=== PATIENT | male | born 1970 | race Caucasian/White ===

== ENCOUNTER 2020-03-09 10:35 | Outpatient (CLI) | payer OTHER, SELFPAY ==
--- NOTE | ~2020-03-09 | XR_ITS ---
EXAMINATION: XR abdomen/kub 1V DATE: 03/09/2020 10:54 INDICATION: Right flank pain. Right ureteral stone. TECHNIQUE: A supine view of the abdomen on 2 radiographs was obtained. COMPARISON: CT abdomen and pelvis 09/30/2013, abdomen radiographs 02/27/2018 FINDINGS: There are no dilated loops of bowel. There are vascular calcifications in left pelvis. Ther e are 2 mm and 4 mm calcifications in right pelvis. IMPRESSION: 1. 2 mm and 4 mm calcifications in right pelvis, that may be phleboliths or distal ureteral stones. Reviewed, dictated and finalized at location A. S PRODUCT ANALYST IMPRESSION: 1. 2 mm and 4 mm calcifications in right pelvis, that may be phleboliths or dis marcelo ureteral stones.
== END 2020-03-09 10:36 | disposition home or self-care (01) ==
PROVIDERS: PCP Family Medicine; Visit Provider Urology
DX: N20.1 Calculus of ureter (principal)
CPT/HCPCS: 74018

== ENCOUNTER 2020-03-10 10:35 | Outpatient (CLI) | payer OTHER, SELFPAY ==
--- NOTE | ~2020-03-10 | XR_ITS ---
XR abdomen/kub 1V DATE: 03/10/2020 10:55 INDICATION: Right ureteral stone TECHNIQUE: AP projection, 2 views COMPARISON: 03/09/2020 KUB FINDINGS: Small calcifications previously noted overlying the right pelvis on 03/09/2020 are not evide nt on the current examination. Calcified left pelvic phleboliths. No bowel obstruction. The psoas shadows are intact. No visceromegaly is evident. Included skeletal st ructures are unremarkable. IMPRESSION: Previously reported right pelvic calcifications/ are not evident on the current ra diograph. Noncontrast CT abdomen pelvis would be most optimal for evaluation of urinary tract stones. Reviewed, dictated and finalized at Location A. Reviewed, dictated and finalized at location A. ER MACHINE OPERATOR IMPRESSION: Previously reported right pelvic calcifications/ are not boaz dent on the current radiograph. Noncontrast CT abdomen pelvis would be most optimal for evaluation of urinary t ract stones.
--- NOTE | ~2020-03-10 | CT_ITS ---
EXAMINATION: CT abdomen pelvis wo con DATE: 03/10/2020 11:02 INDICATION: Right ureteral stone. TECHNIQUE: Computed tomography (CT) of the abdomen and pelvis was performed without intravenous contr ast. Automated exposure control and iterative reconstruction technique were employed. The dose-length product was 254.78 mGy-cm. COMPARISON: 09/30/2013 FINDINGS: Discoid atelectasis in the left lower lobe and lingula. Heart size is normal. No pericardial or pleur al effusion. Liver, gallbladder, spleen, pancreas and bilateral adrenal glands are normal. 12 mm left renal cyst. There are 4 nonobstructing stones measuring up to 2 mm in the left kidney and 2 nonobstr ucting stones measuring up to 3 mm in the right kidney. No ureteral stones or hydronephrosis on eithe r the left or right. Bladder is normal. Prosthetic calcifications. There are few sigmoid diverticula without adjacent inflammatory change to suggest diverticulitis. Small bowel and appendix are normal. No free intraperitoneal gas or fluid. No pathologically enlarged abdominal or pelvic lymphadenopathy. Bones are unremarkable. IMPRESSION: 1. Bilateral nonobstructing nephrolithiasis. 2. Mild sigmoid diverticulosis. Reviewed, dictated and finalized at location B. [place] PHARMACY MANAGER
== END 2020-03-10 10:36 | disposition home or self-care (01) ==
PROVIDERS: PCP Family Medicine; Visit Provider Urology
DX: N20.1 Calculus of ureter (principal); K57.30 Diverticulosis of large intestine without perforation or abscess without bleeding; N20.0 Calculus of kidney
CPT/HCPCS: 74018; 74176

== ENCOUNTER → 2020-07-08 03:34 | Outpatient (CLI) | payer OTHER, SELFPAY ==
[2020-07-08 19:46] LABS: SARS-CoV-2 RNA PCR Negative
== END ==
PROVIDERS: PCP Internal Medicine; Visit Provider Internal Medicine Gastroenterology
DX: Z01.812 Encounter for preprocedural laboratory examination (principal); Z20.822 Contact with and (suspected) exposure to COVID-19
CPT/HCPCS: C9803; U0003; U0005

== ENCOUNTER 2020-07-11 01:19 | Day surgery (SDC) | payer OTHER, SELFPAY ==
[2020-07-05 13:38] VITALS: BMI 27.0
[2020-07-11 07:15] VITALS: BP 120/98; PULSE 62; RESP 18; TEMP 36.5; O2SAT 98; BMI 26.4
[2020-07-11] MEDS: LACTATED RINGERS 1,000 ML 150 ML IV CONT (07:28)
--- NOTE | 2020-07-11 07:50 | PM.HPGS ---
History of Present Illness History of Present Illness Consent: Risks, benefits, and alternatives have been discussed and questions answered. Patient agrees to proceed with procedure. Chief complaint: neoplasm screening Narrative: Lloyd Escobar is a 50 year old male here for first screening colonoscopy Review of Systems Constitutional: Constitutional: Denies headache(s) and Denies weakness Eyes: Eyes: Denies blurry vision ENT: Reports Normal hearing present, Denies headache(s) and Denies neck pain Cardiovascular: Cardiovascular: Denies chest pain and Denies dyspnea Respiratory: Respiratory: Denies dyspnea Gastrointestinal: Gastrointestinal: Reports no additional gastrointestinal complaints Genitourinary: Genitourinary: Denies dysuria Musculoskeletal: Musculoskeletal: Denies neck pain Integumentary/Breasts: Skin/Breast: Denies dry skin Neurologic: Reports Normal hearing present, Denies headache(s) and Denies weakness Psychiatric: Psychiatric: Denies anxiety Endocrine: Endocrine: Denies change in body appearance Hematologic/Lymphatic: Hematologic/Lymphatic: Denies easy bleeding Allergic/Immunologic: Allergic/Immunologic: Denies urticaria PMF Past Medical History Medical History (Updated 07/11/20 @ 07:51 by Aamir Arroyo MD) Colon cancer screening Family History Family History (Updated 10/13/14 @ 08:59 by DOCTOR UNKNOWN) Other Diabetes mellitus Social History Social History Smoking status: Never smoker Alcohol intake: current Drinks per week: 8 Living arrangements: with family Spiritual care concerns: No Meds Home Medications and Allergies Home Medications Medication Instructions Recorded Confirmed Type No Home Medications 07/05/20 07/11/20 History Allergies Allergy/AdvReac Type Severity Reaction Status Date / Time levofloxacin Allergy Severe ACHILLES Verified 07/11/20 07:14 TENDONITIS Vital Signs Vital Signs - 24 hr 07/11/20 07:15 Temperature 97.7 F Pulse Rate 62 Respiratory Rate 18 Blood Pressure 120/98 H Pulse Oximetry 98 Exam Const: General: comfortable and no acute distress HENMT: General nose exam: Normal nares present Eyes: General: appearance normal, both eyes and all related structures Neck: Neck: no JVD Resp: Auscultation: clear to auscultation bilaterally Cardio: Rate: regular rate Rhythm: regular rhythm GI: Inspection: non-distended GI Palp: Yes Soft to palpation Skin: General skin exam: normal color Neuro: General: gait normal Speech: normal speech Extrem: General: normal to inspection Psych: Mental Status: mental status grossly normal Assessment and Plan Assessment and plan (1) Colon cancer screening: Code(s): Z12.11 - Encounter for screening for malignant neoplasm of colon Status: Acute Assessment and Plan: colonoscopy
--- NOTE | 2020-07-11 07:56 | WPDANESEPPF ---
Anes - Initial Pre Proc Eval Procedure: Operation Date: 07/11/20 08:00 Proposed Procedures p Screening Colonoscopy - Aamir Arroyo MD Date/Time: 07/11/20 07:56 Surgeon: Aamir Arroyo MD Pre Op Diagnosis: neoplasm screening Patient Data Age: 50 Gender: M Height: 5 ft 9 in Weight: 81 kg Last Vital Signs Temp 97.7 F 07/11/20 07:15 Pulse 62 07/11/20 07:15 Resp 18 07/11/20 07:15 BP 120/98 H 07/11/20 07:15 Pulse Ox 98 07/11/20 07:15 Allergies Allergy/AdvReac Type Severity Reaction Status Date / Time levofloxacin Allergy Severe ACHILLES Verified 07/11/20 07:14 TENDONITIS Home Medications Medication Instructions Recorded Confirmed Type No Home Medications 07/05/20 07/11/20 History Patient hx anesthesia problems: none Family hx anesthesia problems: none PMFSH Past Medical History Medical History (Updated 07/11/20 @ 07:56 by Reese Thornton MD) Colon cancer screening Kidney stones Family History Family History (Updated 10/13/14 @ 08:59 by DOCTOR UNKNOWN) Other Diabetes mellitus Social History Social History Smoking status: Never smoker Alcohol intake: current Drinks per week: 8 Living arrangements: with family Spiritual care concerns: No Anes - Eval Final PreProcedure Day of Procedure 07/11/20 07:56 Patient weight: normal Heart: regular rate and rhythm Lungs: clear to auscultation Airway: Mallampati scale class II Neurological: alert and oriented Last oral intake: >/= 8 hours ASA classification: II Emergent: no Anesthetic plan: proceed Anesthesia type and monitoring: general GIVS and standard monitoring Informed Consent: The patient's anesthetic plan and its attendant risks and benefits were discussed with the patient/family/POA. Questions were solicited and answers provided to the satisfaction of the patient/family/POA.
[2020-07-11 08:15] VITALS: BP 88/48; PULSE 59; RESP 16; O2SAT 98
[2020-07-11 08:25] VITALS: BP 90/60; PULSE 61; RESP 19; O2SAT 98
[2020-07-11 08:35] VITALS: BP 91/62; PULSE 62; RESP 20; O2SAT 98
== END 2020-07-11 08:42 | disposition home or self-care (01) ==
PROVIDERS: PCP Internal Medicine; Visit Provider Internal Medicine Gastroenterology
PROC: 0DJD8ZZ Inspection of Lower Intestinal Tract, Via Natural or Artificial Opening Endoscopic (ICD-10-PCS; CPT 45378; principal; 2020-07-11 08:00)
DX: Z12.11 Encounter for screening for malignant neoplasm of colon (principal); K57.30 Diverticulosis of large intestine without perforation or abscess without bleeding; K64.8 Other hemorrhoids
CPT/HCPCS: 45378; C9803; J2704; J7120; U0003; U0005

== ENCOUNTER 2020-12-20 17:05 | Outpatient (CLI) | payer OTHER, SELFPAY ==
--- NOTE | ~2020-12-20 | CT_ITS ---
EXAMINATION: CT abdomen pelvis wo con EXAM DATE: 12/20/2020 17:35 INDICATION: Kidney stone. TECHNIQUE: Spiral CT of the abdomen and pelvis was performed without contrast. Axial, coronal and sag ittal images were reviewed. The dose-length product (DLP) for this examination was 224.57 mGy-cm. T he exposure was tailored according to patient size (auto mA exposure control), and iterative reconstr uction (ASIR) was used as additional dose reduction technique. Comparison is made to prior examinatio n from 03/10/2020. FINDINGS: Punctate bilateral nephrolithiasis. No ureteral stones or hydronephrosis. The prostate is unremarkable. The bladder is unremarkable. The liver, spleen, adrenal glands and pancreas are unrem arkable. Gallbladder is unremarkable. No biliary obstruction. There is no retroperitoneal or pelvi c lymphadenopathy. There are no findings to suggest appendicitis. There is mild to moderate colonic diverticulosis. The re is no adjacent inflammatory change to suggest diverticulitis. The stomach and small bowel are unr emarkable. There is expected amount of colonic stool. No free intraperitoneal gas. The heart is normal in size. There are no pericardial or pleural effusions. The lung bases are unremarkable. Th ere are no osteoblastic or osteolytic lesions identified. IMPRESSION: 1. Punctate bilateral nonobstructing nephrolithiasis. No acute findings. 2. Sigmoid colonic diverticulosis. Reviewed, dictated and finalized at location A. OGICAL SCIENCE TECHNICIAN
--- NOTE | ~2020-12-20 | XR_ITS ---
EXAMINATION: XR abdomen/kub 1V INDICATION: Calculus of the kidney TECHNIQUE: Supine views of the abdomen were obtained on 2 radiographs. COMPARISON: CT of the same date FINDINGS: There is a 2 mm stone in the lower pole of the right kidney. Punctate left nephrolithiasis is also noted. No stones are identified along the expected courses of the ureters or at the urinary b ladder. Phleboliths are noted in the pelvis. The bowel gas pattern is normal. The visualized lung bas es are clear. There is moderate osteoarthritis of the hips. IMPRESSION: 1. Bilateral nephrolithiasis. Reviewed, dictated and finalized at location B. ICAL CARE NURSE
== END 2020-12-20 17:06 | disposition home or self-care (01) ==
LOC: ANHIMG 17:09
PROVIDERS: PCP Internal Medicine; Visit Provider Urology
DX: N20.0 Calculus of kidney (principal); K57.30 Diverticulosis of large intestine without perforation or abscess without bleeding
CPT/HCPCS: 74018; 74176

== ENCOUNTER 2024-02-25 09:10 | Outpatient (CLI) | payer OTHER, SELFPAY ==
--- NOTE | ~2024-02-25 | XR_ITS ---
XR abdomen/kub 1V Ordering provider: Silvestre Delvalle MD History: . Calculus of kidney X 10 YRS . Comparison: None. FINDINGS: BOWEL: Nonobstructive bowel gas pattern. ORGANOMEGALY: None. SIGNIFICANT PATHOLOGIC CALCIFICATIONS: Multiple tiny calcifications in both kidneys. OTHER: No free air is seen under the diaphragm. IMPRESSION: NO ACUTE ABDOMINAL FINDINGS. Bilateral kidney stones. Reviewed, dictated and finalized at location A. MIGRATION LEAD
== END 2024-02-25 09:11 | disposition home or self-care (01) ==
PROVIDERS: PCP Nurse Practitioner Family; Visit Provider Urology
DX: N20.0 Calculus of kidney (principal)
CPT/HCPCS: 74018